=== PATIENT | male | born 1950 | race African-American/Black ===

== ENCOUNTER 2023-04-02 15:36 | Emergency (ER) | payer MEDICARE, OTHER ==
[2023-04-02 16:37] VITALS: RESP 18
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
--- NOTE | 2023-04-02 17:08 | XR ---
EXAMINATION: XR chest 2V: 04/02/2023 5:01 PM CLINICAL INDICATION: r/o pna TECHNIQUE: Departmental protocol COMPARISON: None FINDINGS: The lungs are clear. The pleural spaces are negative. The cardiac silhouette is borderline enlarged. Aortic tortuosity noted. The skeletal structures and soft tissues are negative for acute findings. Chronic left lateral clavic ular fracture changes noted. IMPRESSION: No acute radiographic process.
[2023-04-02 18:25] VITALS: BP 138/84; PULSE 60; TEMP 98.4
== END 2023-04-02 18:23 | disposition home or self-care (01) ==
LOC: EC 15:36
DX: R09.3 Abnormal sputum (principal); I10 Essential (primary) hypertension; F15.90 Other stimulant use, unspecified, uncomplicated; Z87.891 Personal history of nicotine dependence
CPT/HCPCS: 71046; 99283